=== PATIENT | female | born 1990 | race Caucasian/White ===

== ENCOUNTER 2020-02-18 18:31 | Inpatient (IN) | payer OTHER ==
[2020-02-18] MEDS ORDERED: ACETAMINOPHEN 325 MG TABLET PO PRN (18:54)
[2020-02-18] MEDS ORDERED: RINGERS SOLUTION,LACTATED 300 ML IV ONE (18:54)
[2020-02-18] MEDS ORDERED: DINOPROSTONE 10 MG VAGINAL INSERT.SR PV PRN (18:54)
[2020-02-18] MEDS ORDERED: RINGERS SOLUTION,LACTATED 1,000 ML IV PRN ×2 (18:54→18:58)
[2020-02-18] MEDS ORDERED: ZOLPIDEM TARTRATE 5 MG TABLET PO PRN (18:54)
[2020-02-18] MEDS ORDERED: MAG HYDROX/AL HYDROX/SIMETH SUSP 30 ML UDCUP PO PRN (18:54)
[2020-02-18] MEDS ORDERED: DINOPROSTONE 10 MG VAGINAL INSERT.SR ONE (19:21)
[2020-02-18 19:23] LABS: APPEARANCE,URINE CLEAR; BILIRUBIN,URINE NEGATIVE (NEGATIVE); COLOR,URINE YELLOW; GLUCOSE, URINE NEGATIVE (NEGATIVE); KETONES,URINE NEGATIVE (NEGATIVE); LEUKOCYTE ESTERASE,URINE NEGATIVE (NEGATIVE); NITRITE,URINE NEGATIVE (NEGATIVE); PROTEIN,URINE NEGATIVE (NEGATIVE); URINE SPECIFIC GRAVITY 1.006; UROBILINOGEN,URINE NEGATIVE mg/dL (<2.0)
[2020-02-18 19:35] LABS: HEMATOCRIT 29.4 % (36.0-47.0); HEMOGLOBIN 9.9 g/dL (12.0-15.5); MEAN CORPUSCULAR HEMOGLOBIN 27.3 pg (27.0-33.4); MEAN CORPUSCULAR HGB CONC 33.8 g/dL (32.0-36.0); MEAN CORPUSCULAR VOLUME 81 fl (80-97); PLATELET COUNT 161 10^3/uL (150-450); RED BLOOD COUNT 3.64 10^6/uL (3.72-5.28); RED CELL DISTRIBUTION WIDTH 13.7 % (11.5-14.0); WHITE BLOOD COUNT 9.8 10^3/uL (4.0-10.5)
--- NOTE | 2020-02-18 19:39 | Admission Physical ---
Datetime Report Generated by CPN: 02/18/2020 19:39 CURRENT ADMISSION Hx Assessment: The History has been Reviewed and is Current Chief Complaint: Scheduled Induction of Labor Indication for Induction: Post Dates Admit Impression : Postterm, Intrauterine Admit Plan: Admit to Unit; Initiate Labor Induction Protocol ALLERGIES Medication Allergies: No Medication Allergies: No Known Allergies (02/18/2020) Latex: No Latex Allergies OBSTETRICAL HISTORY EDC: 02/12/2020 00:00 : 1 Para: 0 Term: 0 : 0 SAB: 0 IAB: 0 Ectopic: 0 Livin Cesareans: 0 VBACs: 0 Multiple Births: 0 Gestational Diabetes: No Rh Sensitization: No Incompetent Cervix: No BRENNA: No Infertility: No ART Treatment: No Uterine Anomaly: No IUGR: No Hx Previous C/S: No Macrosomia: No Hx Loss/Stillborn: No PIH: No Hx : No Placenta Previa/Abruption: No Depression/PP Depression: No PTL/PROM: No Post Hemorrhage: No Current Procedures: Ultrasound Obstetrical History Comments: G1-Current SEE RECORDS Alcohol: No Marijuana : No Cocaine: No Other Illicit Drugs: No Cigarettes: Never Smoker. 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 Surgery: No Heart Disease: No Hosp/Surgery: No Autoimmune Disorder: No Anesthetic Complications: No Kidney Disease: Yes Abnormal Pap Smear: Yes Neuro/Epilepsy: No Psychiatric Disorders: No Other Medical Diseases: No Hepatitis/Liver Disease: No Significant Family History: No Varicosities/Phlebitis: No Trauma/Violence : No Thyroid Dysfunction: No Medical History Comments: 06/2008 and 10/2009 -ASCUS +HPV INFECTIOUS HISTORY Gonorrhea: No Genital Herpes: No Chlamydia: Yes Tuberculosis: No Syphilis: No Hepatitis: No HIV/AIDS Exposure: No Rash or Viral Illness: No HPV: Yes PHYSICAL EXAM General: Normal HEENT: Normal Neurologic: Normal Thyroid: Normal Heart: Normal Lungs: Normal Breast: Normal Back: Normal Abdomen: Normal Genitourinary Exam: Normal Extremities: Normal DTRs: Normal Pelvic Type: Adequate Vital Signs: Reviewed; Within Normal Limits VAGINAL EXAM Dilatation: 4 Effacement: 75 Station: -1 Contraction Comments: irregular MEMBRANES Membranes: Intact FETUS A EGA: 40.6 Monitoring: External US FHR- Baseline: 125 Variability: Moderate 6-25bpm Accelerations: 15X15 Decelerations: None FHR Category: Category I Presentation: Vertex Admit Comment: G1 at 40.6 wks EGA admitted for IOL for post dates . -Admit to LDR -CEFM and toco -NPO and IVFs . LR at 150 cc/hr after IVF bolus of 1 liter -GBS negative -Desires epidural with labor -Anticipate PLANS FOR LABOR AND DELIVERY Labor and Delivery: None Pain Management: Epidural Feeding Preference: Breast Benefit of Breast Feed Discussed: Yes Circumcision: Yes INFORMED CONSENT Informed Consent Obtained: Vaginal Delivery; Induction of Labor; Vacuum/Forceps Assist; Risks, Benefits and Alternatives Discussed Signature: with User ID: [email or web address] : with User ID: [email or web address]
[2020-02-18 19:40] LABS: URINE AMPHETAMINES SCREEN NEGATIVE; URINE BARBITURATES SCREEN NEGATIVE; URINE BENZODIAZEPINES SCREEN NEGATIVE; URINE COCAINE SCREEN NEGATIVE; URINE MARIJUANA (THC) SCREEN NEGATIVE; URINE METHADONE SCREEN NEGATIVE; URINE PHENCYCLIDINE SCREEN NEGATIVE
[2020-02-18] MEDS ORDERED: EPHEDRINE SULFATE INJ 50 MG/1 ML AMPULE ONE (21:44)
[2020-02-18] MEDS ORDERED: FENTANYL/BUPIVACAINE/NS/PF 300 MCG/150 ML RTUINJ EPI ONE (21:44)
[2020-02-18] MEDS ORDERED: ROPIVACAINE HCL 0.2% INJ/PF (2 MG/ML) 20 ML SDV ONE (21:44)
[2020-02-18] MEDS ORDERED: LIDOCAINE 1% INJ-PF (10 MG/ML) 30 ML SDV ONE (23:07)
[2020-02-18] MEDS ORDERED: OXYTOCIN/0.9 % SODIUM CHLORIDE 0 UNIT/0 ML RTUINJ ONE (23:07)
[2020-02-18] MEDS ORDERED: MISOPROSTOL 0.2 MG TABLET ONE (23:07)
[2020-02-18] MEDS ORDERED: OXYTOCIN 10 UNIT/ML VIAL ONE (23:07)
[2020-02-19] MEDS ORDERED: ONDANSETRON HCL INJ/PF 4 MG/2 ML SDV IV ONE (07:49)
[2020-02-19] MEDS ORDERED: ONDANSETRON HCL INJ/PF 4 MG/2 ML SDV ONE ×2 (07:50→14:44)
--- NOTE | 2020-02-19 08:10 | L&D Progress Notes ---
PROGRESS NOTES Datetime Report Generated by CPN: 02/19/2020 08:10 PROGRESS NOTE Procedures: Artificial ROM Procedures- Other: forebag Plan: Continue Present Management Informed Consent Obtained: Vaginal Delivery; Induction of Labor; Vacuum/Forceps Assist; Risks, Benefits and Alternatives Discussed Vital Signs : Reviewed; Within Normal Limits Comment: VE= 8/95/vtx/-2, ROM, forebag with FSE, large amount of clear fluid, Cat 1 strip, irreg uc's POC discussed with patient and hsb anticipate vaginal delivery of male VAGINAL EXAM Dilatation: 4 Effacement: 75 Station: -1 Contractions: irregular LAST VAGINAL EXAM-NURSING Nursing Exam Dilitation: 8.0 Nursing Exam Effacement: 95 Nursing Exam Station: -2 Nursing Exam Contractions: UTD ctx pattern. Pt sitting for epidural. RN at bedside palpating abodmen MEMBRANES Membranes: Ruptured Amniotic Fluid Color: Clear FETUS A Monitoring: External US Variability: Moderate 6-25bpm Accelerations: 15X15 FHR Category: Category I : 40.6 Presentation: Vertex SIGNATURE SIGNATURE: [id number] Assignment: Salvatore Kelly MD Signature: with User ID: [email or web address] : with User ID: [email or web address]
--- NOTE | 2020-02-19 12:07 | L&D Progress Notes ---
PROGRESS NOTES Datetime Report Generated by CPN: 02/19/2020 12:07 PROGRESS NOTE Procedures: Artificial ROM Procedures- Other: forebag Plan: Continue Present Management Informed Consent Obtained: Vaginal Delivery; Induction of Labor; Vacuum/Forceps Assist; Risks, Benefits and Alternatives Discussed Vital Signs : Reviewed; Within Normal Limits Comment: pushing, variables and early decelerations, moderate variability VAGINAL EXAM Dilatation: 4 Effacement: 75 Station: -1 Contractions: irregular LAST VAGINAL EXAM-NURSING Nursing Exam Dilitation: 10.0 Nursing Exam Effacement: 100 Nursing Exam Station: 2 Nursing Exam Contractions: UTD ctx pattern. Pt sitting for epidural. RN at bedside palpating abodmen MEMBRANES Membranes: Ruptured Amniotic Fluid Color: Clear FETUS A Monitoring: External US Variability: Moderate 6-25bpm Accelerations: 15X15 FHR Category: Category I : 40.6 Presentation: Vertex SIGNATURE SIGNATURE: [id number];[id number] Assignment: Salvatore Kelly MD Signature: with User ID: [email or web address] : with User ID: [email or web address]
[2020-02-19] MEDS ORDERED: FENTANYL/BUPIVACAINE/NS/PF 300 MCG/150 ML RTUINJ EPI ONE (12:21)
--- NOTE | 2020-02-19 13:35 | L&D Progress Notes ---
PROGRESS NOTES Datetime Report Generated by CPN: 02/19/2020 13:34 PROGRESS NOTE Procedures: Artificial ROM Procedures- Other: forebag Plan: Continue Present Management Informed Consent Obtained: Vaginal Delivery; Induction of Labor; Vacuum/Forceps Assist; Risks, Benefits and Alternatives Discussed Vital Signs : Reviewed; Within Normal Limits Comment: text Dr. Kelly to come and possibly us VExt, poor pushing effort x 2.5 hours, early decelerations and occas late, moderate variability VAGINAL EXAM Dilatation: 4 Effacement: 75 Station: -1 Contractions: irregular LAST VAGINAL EXAM-NURSING Nursing Exam Dilitation: 10.0 Nursing Exam Effacement: 100 Nursing Exam Station: 2 Nursing Exam Contractions: UTD ctx pattern. Pt sitting for epidural. RN at bedside palpating abodmen MEMBRANES Membranes: Ruptured Amniotic Fluid Color: Clear FETUS A Monitoring: External US Variability: Moderate 6-25bpm Accelerations: 15X15 FHR Category: Category I : 40.6 Presentation: Vertex SIGNATURE SIGNATURE: [id number];[id number] Assignment: Salvatore Kelly MD Signature: with User ID: [email or web address] : with User ID: [email or web address]
[2020-02-19] MEDS ORDERED: CEFAZOLIN 2 GM/D5W RTU 2 GM/50 ML RTUPB IV ONE (14:20)
[2020-02-19] MEDS ORDERED: CITRIC ACID/SODIUM CITRATE ORAL SOLN 15 ML UDCUP ONE (14:20)
--- NOTE | 2020-02-19 14:22 | L&D Progress Notes ---
PROGRESS NOTES Datetime Report Generated by CPN: 02/19/2020 14:21 PROGRESS NOTE Impression: Arrest of Dilatation/Descent Procedures: Artificial ROM Procedures- Other: forebag Plan: Deliver- Section Informed Consent Obtained: Section Delivery Vital Signs : Reviewed; Within Normal Limits Comment: She has been pushing for 3 hours now. The pt requested a vac delivery. This was attempted with a kiwi with pull during the contractions. I am unable to advance the station with strong pulls during three contractions. At this point the pt requests a . We will go ahead and proceed. VAGINAL EXAM Dilatation: 4 Effacement: 75 Station: -1 Contractions: irregular LAST VAGINAL EXAM-NURSING Nursing Exam Dilitation: 10.0 Nursing Exam Effacement: 100 Nursing Exam Station: 2 Nursing Exam Contractions: UTD ctx pattern. Pt sitting for epidural. RN at bedside palpating abodmen MEMBRANES Membranes: Ruptured Amniotic Fluid Color: Clear FETUS A Monitoring: External US Variability: Moderate 6-25bpm Accelerations: 15X15 FHR Category: Category I : 41.0 Presentation: Vertex SIGNATURE SIGNATURE: [id number];[id number] Assignment: Salvatore Kelly MD Signature: with User ID: [email or web address] : with User ID: [email or web address]
[2020-02-19] MEDS ORDERED: CEFAZOLIN SODIUM 2 GM in DEXTROSE 5%-WATER 50 ML IV PRN (14:25)
[2020-02-19] MEDS ORDERED: DIPH/PERTUSS(ACELL)/TETANUS VAC/PF 0.5 ML SYR (>=10YO) IM PRN (14:27)
[2020-02-19] MEDS ORDERED: HYDROMORPHONE HCL INJ/PF 2 MG/ML AMPULE IV PRN (14:27)
[2020-02-19] MEDS ORDERED: RINGERS SOLUTION,LACTATED 1,000 ML IV PRN (14:27)
[2020-02-19] MEDS ORDERED: MEASLES,MUMPS&RUBELLA VACC/PF 0.5 ML VIAL SUBCUT PRN (14:27)
[2020-02-19] MEDS ORDERED: ACETAMINOPHEN 325 MG TABLET PO PRN (14:27)
[2020-02-19] MEDS ORDERED: OXYTOCIN/0.9 % SODIUM CHLORIDE 30 UNIT/500 ML RTUINJ IV PRN (14:27)
[2020-02-19] MEDS ORDERED: SIMETHICONE 80 MG TAB.CHEW PO PRN (14:27)
[2020-02-19] MEDS ORDERED: PROMETHAZINE HCL INJ 25 MG/1 ML VIAL IV PRN (14:27)
[2020-02-19] MEDS ORDERED: OXYCODONE-ACETAMINOPHEN 5-325 MG TABLET PO PRN ×2 (14:27)
[2020-02-19] MEDS ORDERED: ACETAMINOPHEN 1,000 MG/100 ML RTUPB IV PRN (14:27)
[2020-02-19] MEDS ORDERED: FENTANYL CITRATE INJ/PF 100 MCG/2 ML AMPUL ONE ×2 (14:36→15:12)
[2020-02-19] MEDS ORDERED: LIDOCAINE 2% INJ-PF (20 MG/ML) 10 ML AMPUL ONE ×2 (14:36→15:35)
[2020-02-19] MEDS ORDERED: PHENYLEPHRINE HCL INJ/PF 10 MG/1 ML SDV ONE (14:44)
[2020-02-19] MEDS ORDERED: OXYTOCIN 10 UNIT/ML VIAL ONE ×2 (14:50→15:06)
--- NOTE | 2020-02-19 15:37 | Operative Report ---
Operative Report DATE OF SURGERY: 02/19/20 PREOPERATIVE DIAGNOSIS: Arrest of descent, unsuccessful vacuum delivery attempt POSTOPERATIVE DIAGNOSIS: Same OPERATION: Primary via low transverse uterine incision SURGEON: DANIEL CHU ANESTHESIA: Epidural TISSUE REMOVED OR ALTERED: Placenta COMPLICATIONS: None ESTIMATED BLOOD LOSS: 400 cc INTRAOPERATIVE FINDINGS: Viable male crying at delivery, normal uterus tubes and ovaries PROCEDURE: Patient was taken to the OR and placed in supine position after her spinal anesthesia. She is prepared and draped in sterile fashion. Duarte was placed for drainage of the bladder. Low transverse incision was made and carried down the level of the fascia. The fascial incision was made with knife and extended bilaterally with curved Carrasco scissors. The fascia was off the rectus muscles using sharp and blunt dissection. The rectus muscles are in the midline. The peritoneum was entered without incident. Bladder blade was placed in uterine segment was identified. A low transverse incision was made creating a bladder flap. Bladder blade was placed low transverse uterine incision was made with the knife and extended with fingertips. The baby was delivered left occiput transverse with assistance of the vaginal hand and with some fundal pressure. Mouth and nose were suctioned free. The cord is doubly clamped and cut. Baby is passed off to the textile machinery sales representative in attendance. The placenta was manually extracted with trailing membranes. The uterus was externalized wrapped in a moist lap sponge. Uterine contents wiped free. Uterus was closed with a running locking layer of 0 chromic suture using the second layer to imbricate the first completing a double layer closure of the uterus. The serosa was closed with a running 2-0 chromic stitch. The pelvis was irrigated and suctioned free of fluid the uterus was replaced in the abdomen. The abdominal wall peritoneum was closed with running 2-0 chromic stitch. Fascia was closed with a running 0 Vicryl in 2 segments. Ramon's layer was brought together with 0 plain gut stitch and the skin was closed with running subcuticular 4-0 undyed Vicryl stitch. The wound was dressed mother and baby did well.
--- NOTE | 2020-02-19 16:16 | Birth Certificate Data ---
Cert Data Datetime Report Generated by CPN: 02/19/2020 16:16 CERTIFICATE DATA 47a. Care: Yes (02/18/2020 17:47:Su Márquez RN) 47b. Date of First Visit: 08/02/2019 00:00 (02/18/2020 17:47:Su Márquez RN) 47c. Date of Last Visit: 02/15/2020 00:00 (02/18/2020 17:47:Su Márquez RN) 47d. Number of Visits: 12 (02/18/2020 17:47:Su Márquez RN) 48a. Number of Prev Live Births: 0 (02/18/2020 17:47:Su Márquez RN) 48b. Now Livin (02/18/2020 17:47:Su Márquez RN) 48c. Live Births Now : 0 (02/18/2020 17:47:QS system process) 48e. Losses: 0 (02/18/2020 17:47:Su Márquez RN) RISK FACTORS IN THIS 49a. Diabetes: No (02/18/2020 17:47:Su Márquez RN) 49b. Hypertension: No (02/18/2020 17:47:Su Márquez RN) 49c. Previous Births: 0 (02/18/2020 17:47:Su Márquez RN) 49d. Stillborns: No (02/18/2020 17:47:Su Márquez RN) 49d. IUGR: No (02/18/2020 17:47:Su Márquez RN) 49e. Infertility Treatment: No (02/18/2020 17:47:Su Márquez RN) 49f. Previous Cesareans: 0 (02/18/2020 17:47:Su Márquez RN) Mother's Height 50b. Height Inches: 67 (02/19/2020 13:59:QS system process) Mother's Weight 51a. Pre- Weight (lbs): 152 (02/18/2020 17:47:Su Márquez RN) 51b. Weight at Delivery (lbs): 189 (02/19/2020 13:59:QS system process) 52. Dt Last Normal Menses Began: 05/08/2019 00:00 (02/18/2020 17:47:Su Márquez RN) Infections Present/Treated 53a. Gonorrhea: No (02/18/2020 17:47:Su Márquez RN) Results this Hospital Visit : Negative (02/18/2020 17:47:Su Márquez RN) 53b. Syphilis: No (02/18/2020 17:47:Su Márquez RN) Results this Hospital Visit: NONREACTIVE (02/18/2020 19:17:QS system process) 53c. Chlamydia: Yes (02/18/2020 17:47:Su Márquez RN) Results this Hospital Visit: Negative (02/18/2020 17:47:Su Márquez RN) 53d. Hepatitis B: No (02/18/2020 17:47:Su Márquez RN) Results this Hospital Visit: Negative (02/18/2020 17:47:Su Márquez RN) 53e. Hepatitis C: Negative (02/18/2020 17:47:Su Márquez RN) 53h. Mother Tested for HBsAG: Yes (02/18/2020 17:47:Su Márquez RN) 53i. Date Tested: 08/02/2019 00:00 (02/18/2020 17:47:Su Márquez RN) 53j. Test Result: Negative (02/18/2020 17:47:Su Márquez RN) Obstetric Procedures 54a, b, c. Obstetric Procedures: Ultrasound (02/18/2020 17:47:Su Márquez RN) Cigarette Smoking Cigarette Smoking: Never Smoker. [id number] (02/18/2020 17:47:Su Márquez RN) 55a. 3 Months Before Preg - Ci (02/18/2020 17:47:Su Márquez RN) 55b. 1st Trimester of Preg- Ci (02/18/2020 17:47:Su Márquez RN) 55c. 2nd Trimester of Preg- Ci (02/18/2020 17:47:Su Márquez RN) 55d. 3rd Trimester of Preg- Ci (02/18/2020 17:47:Su Márquez RN) Onset of Labor 56a. PROM >12 Hrs: 15.87 (02/18/2020 17:47:QS system process) 56b. Precipitous Labor <3 Hrs: 15 (02/18/2020 17:47:QS system process) 56c. Prolonged Labor > 20 Hrs: 15 (02/18/2020 17:47:QS system process) 57a. Induction of Labor: N/A (02/18/2020 17:47:CLAUDIA Bell) 57c. Non-Vertex Presentation A: Vertex (02/18/2020 17:47:CLAUDIA Bell) 57d. Steroids - Lung Mat: None (02/18/2020 17:47:Su Márquez RN) 57d. Steroids - Lung Mat: Not Applicable (02/18/2020 17:47:Su Márquez RN) 57f. Mat [place] or Temp >100.4: 99.4 (02/18/2020 17:47:Su Márquez RN) 57g. Moderate/Heavy Meconium: Clear (02/18/2020 23:08:Sophie Keyes RN) 57h. Intolerance of Labor: Arrest of Descent (02/18/2020 17:47:CLAUDIA Bell) : N/A (02/18/2020 17:47:CLAUDIA Bell) 57i. Epidural/Spinal Anesthesia: Epidural (02/18/2020 17:47:Su Márquez RN) Method of Delivery 58a. Forceps - Unsuccessful A: N/A (02/18/2020 17:47:CLAUDIA Bell) 58b. Vacuum - Unsuccessful A: Failed (02/18/2020 17:47:CLAUDIA Bell) 58c. Presentation at 58c. Presentation at - A : Vertex (02/18/2020 17:47:CLAUDIA Bell) 58c. Presentation at - A : N/A (02/18/2020 17:47:CLAUDIA Bell) 58c. Presentation at - A : Cephalic (02/18/2020 19:29:Sophie Keyes, RN) Final Route and Method of Del 58d. Baby A Route/Delivery: (02/18/2020 17:47:Nimo Ruano [facility]) 58e. Trial of Labor Attempted: No (02/18/2020 17:47:Su Márquez RN) 58e. Trial of Labor Attempted A: N/A (02/18/2020 17:47:Su Márquez RN) 58e. Trial of Labor Attempted B: N/A (02/18/2020 17:47:Su Márquez RN) Maternal Morbidity 59b. 3rd or 4th Degree Lacs: None (02/18/2020 17:47:Nimo Camp, [facility]) Birthweight Baby A: 3685 (02/18/2020 17:47:Nimo [place], RNC) 60a. Pounds : 8 (02/18/2020 17:47:QS system process) 60b. Ounces: 2 (02/18/2020 17:47:QS system process) 61. GA at Delivery Baby A: 41.0 (02/18/2020 17:47:[facility], ) : Late Term- 41- 41.6 Weeks (02/18/2020 17:47:QS system process) 62a. 5 Minute Baby A: 9 (02/18/2020 17:47:QS system process)
--- NOTE | 2020-02-19 16:16 | Delivery Summary ---
Del Sum A-C Datetime Report Generated by CPN: 02/19/2020 16:16 DELIVERY PERSONNEL DELIVERY PERSONNEL: [id number] Delivery Doctor:: Salvatore Kelly MD Nurse Automotive Refinish Technician Certified:: Elidia Whittington CNM FBI PROFILER:: Rocio Jimenez CRNA Labor and Delivery Nurse:: Su Márquez RN Loan And Credit Manager:: Su Márquez RN Neonatal Nurse Practitioner:: MIKA Ordoñez Nursery Nurse:: Sofia Robledo RN Annealer Helper/BANANA ROOM CUTTER: ST Afia Annealer Helper/BANANA ROOM CUTTER: Eleonora Gonzalez, SPEEDOMETER MECHANIC MATERNAL INFORMATION Delivery Anesthesia: Epidural Medications After Delivery: Pitocin Drip 20 Units/1000ml NSS Meds After Delivery Comment: Pitocin 20 units/ 1000 LR x 2 Delivery QBL: 610 Maternal Complications: None LABOR SUMMARY EDC: 02/12/2020 00:00 No. Babies in Womb: 1 Attempted: No Labor Anesthesia: Epidural LABOR INFORMATION Reason for Induction: Not Applicable Onset of Labor: 02/18/2020 23:08 Complete Dilatation: 02/19/2020 11:06 Oxytocin: N/A Group B Beta Strep: Negative Antibiotics # of Doses: n/a Name of Antibiotic Given: n/a Steroids Given: None Reason Steroids Not Administered: Not Applicable MEMBRANES Membranes Rupture Method: Spontaneous Rupture of Membranes: 02/18/2020 23:08 Length of Rupture (hr): 15.87 Amniotic Fluid Color: Clear Amniotic Fluid Amount: Small Amniotic Fluid Odor: Normal STAGES OF LABOR Stage 1 hr: 11 Stage 1 min: 58 Stage 2 hr: 3 Stage 2 min: 54 Stage 3 hr: 0 Stage 3 min: 1 Total Time in Labor hr: 15 Total Time in Labor min: 53 VAGINAL DELIVERY Episiotomy: None Laceration #1: None Laceration Extension #1: N/A Sponge Count Correct: N/A Sharps Count Correct: N/A CSECTION DELIVERY Primary Indication: Arrest of Descent Secondary Indication: N/A CSection Urgency: Non-Scheduled CSection Incidence: Primary Labor: Labor Elective: Nonelective CSection Incision: Lower Uterine Transverse BABY A INFORMATION Infant Delivery Date/Time: 02/19/2020 15:00 Method of Delivery: Nurse Controlled Delivery: No Born in Route : No : N/A Forceps: N/A Vacuum Extraction: Failed Shoulder Dystocia : No PRESENTATION/POSITION BABY A Presentation: Cephalic Cephalic Presentation: Vertex Vertex Position: n/a Breech Presentation: N/A PLACENTA INFORMATION BABY A Placenta Delivery Time : 02/19/2020 15:01 Placenta Method of Delivery: Manual Removal Placenta Status: Delivered SCORES BABY A Heart Rate 1 min: >100 bpm Resp Effort 1 min: Slow, Irregular Reflex Irritability 1 min: Cough or Sneeze or Pulls Away Muscle Tone 1 min: Active Motion Color 1 min: Body [place], Extremities Blue SCORE 1 MIN: 8 Heart Rate 5 min: >100 bpm Resp Effort 5 min: Good Cry Reflex Irritability 5 min: Cough or Sneeze or Pulls Away Muscle Tone 5 min: Active Motion Color 5 min: Body [place], Extremities Blue Resuscitation Effort 5 min: N/A SCORE 5 MIN: 9 Resuscitation Effort 10 min: N/A INFORMATION BABY A Gestational Age at Delivery: 41.0 Gestational Status: Late Term- 41- 41.6 Weeks Infant Outcome : Liveborn Infant Condition : Stable Infant Sex: Male IDENTIFICATION BABY A Verification Date/Time: 02/19/2020 15:01 ID Band Number: [id number] Mother's Name Verified: Yes RN Verifying Infant: Paty, RN Additional Verifying Personnel: Yoselin Infante, RN WEIGHT/LENGTH BABY A Birthweight (gm): 3685 Infant Weight (lb): 8 Weight (oz): 2 Length (in): 21.75 Infant Length (cm): 55.25 CORD INFORMATION BABY A No. Cord Vessels: 3 Nuchal Cord : N/A Cord Blood Taken: N/A Infant Suction: None ASSESSMENT BABY A Complications: None Physical Findings at Delivery: Caput Succedaneum; Molding of the Head; Bruising Infant Respirations: Appears Normal Skin to Skin: No Senior Hr Manager/ALS Called : No Infant Care By: Miko Robledo RN Transferred To: [facility] BABY B INFORMATION : N/A ASSESSMENT BABY B Skin to Skin: Yes
[2020-02-19] MEDS ORDERED: ACETAMINOPHEN 1,000 MG/100 ML RTUPB IV ONE ×2 (16:33→16:39)
[2020-02-19] MEDS: DOCUSATE SODIUM 100 MG CAPSULE PO SCH (19:57)
[2020-02-19] MEDS: KETOROLAC TROMETHAMINE INJ/PF 30 MG/1 ML SDV IV SCH (21:08)
[2020-02-20] MEDS: KETOROLAC TROMETHAMINE INJ/PF 30 MG/1 ML SDV IV SCH (05:09)
[2020-02-20 06:53] LABS: HEMATOCRIT 22.1 % (36.0-47.0); MEAN CORPUSCULAR HEMOGLOBIN 27.5 pg (27.0-33.4); MEAN CORPUSCULAR VOLUME 81 fl (80-97); PLATELET COUNT 137 10^3/uL (150-450); RED BLOOD COUNT 2.73 10^6/uL (3.72-5.28); RED CELL DISTRIBUTION WIDTH 14.4 % (11.5-14.0); WHITE BLOOD COUNT 13.8 10^3/uL (4.0-10.5)
[2020-02-20 06:56] LABS: HEMOGLOBIN 7.5 g/dL (12.0-15.5)
[2020-02-20] MEDS ORDERED: INFLUENZA QUAD (6MOS+) 2020-21 VAC 0.5 ML SYR IM ONE (08:00)
[2020-02-20] MEDS: PRENATAL VITAMIN W DHA CAPSULE PO SCH (09:52)
[2020-02-20] MEDS: DOCUSATE SODIUM 100 MG CAPSULE PO SCH ×2 (09:53→17:30)
[2020-02-20] MEDS: IBUPROFEN 800 MG TABLET PO SCH ×3 (12:05→23:01)
--- NOTE | 2020-02-20 12:09 | PDOC PROGRESS REPORT ---
Subjective-OB Progress Note for:: 02/20/20 Subjective: 30yo s/p primary ppd 1. Pt is ambulating, voiding and passing gas without difficulty. Bonding well with baby, reports pain is well controlled with pain medication at this time. Denies sob/dizziness/lightheartednesses or other concerns. Physical Exam (OB) Vital Signs: Temp Pulse Resp BP Pulse Ox 98.0 F 79 16 108/62 99 02/20/20 11:07 02/20/20 11:07 02/20/20 11:07 02/20/20 11:07 02/20/20 11:07 Intake & Output 02/19/20 02/20/20 02/21/20 06:59 06:59 06:59 Intake Total 2150 320 Output Total 1500 Balance 650 320 Weight 86.1 kg - General General Appearance: Appears well In distress: None - PIH/Pre-Eclampsia Headache: Absent Epigastric Pain: No Visual Changes: No - Dressing Removed: No - opsite dressing D&I Incision: Well Approximated - Maternal Morbidity 59. Maternal Morbidity (serious complications experinced by the mother associated with labor and delivery: None of the above - Lochia Lochia Amount: Scant < 10 ml Lochia Color: Rubra/Red - Abdomen Description: Tender, Soft Hernia Present: No Fundal Description: Firm, Midline Fundal Height: u/u - u/2 - Respiratory Respiratory Status: No respiratory distress - Extremities Upper extremity: Normal inspection - Neurological Cognition: Normal Orientation: AAOx4 - Psychological Associated symptoms: Normal affect, Normal mood Objective-Diagnostic Laboratory: 02/20/20 06:24 02/20/20 02/20/20 06:24 06:24 WBC 13.8 H RBC 2.73 L Hgb 7.5 L D Hct 22.1 L MCV 81 MCH 27.5 MCHC 34.0 RDW 14.4 H Plt Count 137 L Blood Type A NEGATIVE Assessment and Plan(PN) - Assessment and Plan (1) Encounter for induction of labor Is this a current diagnosis for this admission?: Yes Plan: delivered (2) Failed induction of labor Qualifiers: Failed induction of labor type: unspecified Qualified Code(s): O61.9 - Failed induction of labor, unspecified Is this a current diagnosis for this admission?: Yes Plan: delivered (3) S/P primary low transverse Is this a current diagnosis for this admission?: Yes Plan: routine pp care (4) Acute blood loss anemia Is this a current diagnosis for this admission?: Yes Plan: will order IV iron at this time, pt agreeable (5) Failed vacuum extraction, delivered, current hospitalization Is this a current diagnosis for this admission?: Yes Plan: delivered - Time Spent with Patient Time with patient: Less than 15 minutes Medications reviewed and adjusted accordingly: Yes - Disposition Anticipated Discharge Disposition: Home, Self Care Anticipated Discharge Timeframe: within 24 hours
[2020-02-20] MEDS ORDERED: IRON SUCROSE COMPLEX INJ/PF 100 MG/5 ML SDV IV ONE (13:30)
[2020-02-20] MEDS ORDERED: IBUPROFEN 800 MG TABLET PO SCH (18:00)
[2020-02-21] MEDS: IBUPROFEN 800 MG TABLET PO SCH ×2 (05:59→12:07)
[2020-02-21 07:06] LABS: HEMATOCRIT 24.5 % (36.0-47.0); HEMOGLOBIN 8.2 g/dL (12.0-15.5); MEAN CORPUSCULAR HEMOGLOBIN 27.7 pg (27.0-33.4); MEAN CORPUSCULAR HGB CONC 33.6 g/dL (32.0-36.0); MEAN CORPUSCULAR VOLUME 82 fl (80-97); PLATELET COUNT 174 10^3/uL (150-450); RED BLOOD COUNT 2.98 10^6/uL (3.72-5.28); RED CELL DISTRIBUTION WIDTH 14.6 % (11.5-14.0); WHITE BLOOD COUNT 13.9 10^3/uL (4.0-10.5)
[2020-02-21] MEDS: PRENATAL VITAMIN W DHA CAPSULE PO SCH (09:39)
[2020-02-21] MEDS: DOCUSATE SODIUM 100 MG CAPSULE PO SCH (09:39)
--- NOTE | 2020-02-21 12:37 | PDOC DISCHARGE SUMMARY ---
Impression - Admit/DC Date/PCP Admission Date/Primary Care Provider: 02/18/20 18:31 MYRA DUPONT MD Discharge Date: 02/21/20 - Discharge Diagnosis (1) Acute blood loss anemia Is this a current diagnosis for this admission?: Yes (2) Encounter for induction of labor Is this a current diagnosis for this admission?: Yes (3) Failed induction of labor Is this a current diagnosis for this admission?: Yes (4) Failed vacuum extraction, delivered, current hospitalization Is this a current diagnosis for this admission?: Yes (5) S/P primary low transverse Is this a current diagnosis for this admission?: Yes - Additional Information Discharge Diet: Regular Discharge Activity: Balance Activity w/Rest, No Lifting Over 10 Pounds, No Lifting/Push/Pulling, Pelvic Rest, No tub bath Referrals: MYRA DUPONT MD [Primary Care Provider] - Prescriptions: Ferrous Sulfate [Semaj-Time] 325 mg PO DAILY 30 Days #30 tablet Ibuprofen [Motrin 800 mg Tablet] 800 mg PO Q6HP PRN #90 tablet PRN Reason: Hydrocodone/Acetaminophen [Vicodin Hp 10-300 mg Tablet] 1 each PO Q6HP PRN #14 tablet PRN Reason: Home Medications: 95/Iron Fum/Folic/Dha [ + Dha Combo Pack] 1 each PO DAILY 02/18/20 Ferrous Sulfate [Semaj-Time] 325 mg PO DAILY 30 Days #30 tablet 02/21/20 Hydrocodone/Acetaminophen [Vicodin Hp 10-300 mg Tablet] 1 each PO Q6HP PRN #14 tablet 02/21/20 Ibuprofen [Motrin 800 mg Tablet] 800 mg PO Q6HP PRN #90 tablet 02/21/20 Hospital Course 59. Maternal Morbidity (serious complications experinced by the mother associated with labor and delivery: None of the above Results Laboratory Results: WBC 13.9 10^3/uL (4.0-10.5) H 02/21/20 06:31 RBC 2.98 10^6/uL (3.72-5.28) L 02/21/20 06:31 Hgb 8.2 g/dL (12.0-15.5) L 02/21/20 06:31 Hct 24.5 % (36.0-47.0) L 02/21/20 06:31 MCV 82 fl (80-97) 02/21/20 06:31 MCH 27.7 pg (27.0-33.4) 02/21/20 06:31 MCHC 33.6 g/dL (32.0-36.0) 02/21/20 06:31 RDW 14.6 % (11.5-14.0) H 02/21/20 06:31 Plt Count 174 10^3/uL (150-450) 02/21/20 06:31 Urine Color YELLOW 02/18/20 18:39 Urine Appearance CLEAR 02/18/20 18:39 Urine pH 6.0 (5.0-9.0) 02/18/20 18:39 Ur Specific [place] 1.006 02/18/20 18:39 Urine Protein NEGATIVE mg/dL (NEGATIVE) 02/18/20 18:39 Urine Glucose (UA) NEGATIVE mg/dL (NEGATIVE) 02/18/20 18:39 Urine Ketones NEGATIVE mg/dL (NEGATIVE) 02/18/20 18:39 Urine Blood NEGATIVE (NEGATIVE) 02/18/20 18:39 Urine Nitrite NEGATIVE (NEGATIVE) 02/18/20 18:39 Urine Bilirubin NEGATIVE (NEGATIVE) 02/18/20 18:39 Urine Urobilinogen NEGATIVE mg/dL (<2.0) 02/18/20 18:39 Ur Leukocyte Esterase NEGATIVE (NEGATIVE) 02/18/20 18:39 Urine Ascorbic Acid NEGATIVE (NEGATIVE) 02/18/20 18:39 Urine Opiates Screen NEGATIVE 02/18/20 18:39 Urine Methadone Screen NEGATIVE 02/18/20 18:39 Ur Barbiturates Screen NEGATIVE 02/18/20 18:39 Ur Phencyclidine Scrn NEGATIVE 02/18/20 18:39 Ur Amphetamines Screen NEGATIVE 02/18/20 18:39 U Benzodiazepines Scrn NEGATIVE 02/18/20 18:39 Urine Cocaine Screen NEGATIVE 02/18/20 18:39 U Marijuana (THC) Screen NEGATIVE 02/18/20 18:39 RPR NONREACTIVE (NONREACTIVE) 02/18/20 19:17 Blood Type A NEGATIVE 02/20/20 06:24 Antibody Screen NEGATIVE 02/18/20 19:17 Screen NEGATIVE 02/20/20 06:24 Plan Plan of Treatment: follow up in 1 week for incision check at [facility]
[2020-02-21 12:50] VITALS: BP 112/64
== END 2020-02-21 13:23 | disposition home or self-care (01) | DRG 787 ==
LOC: LR 18:31 → 2S 02-19 18:18
PROVIDERS: ADMIT Obstetrics & Gynecology; ATTEND Obstetrics & Gynecology
PROC: 10D00Z1 Extraction of Products of Conception, Low, Open Approach (ICD-10-PCS; principal; 2020-02-19)
PROC: 3E0234Z Introduction of Serum, Toxoid and Vaccine into Muscle, Percutaneous Approach (ICD-10-PCS; 2020-02-20)
PROC: 3E02340 Introduction of Influenza Vaccine into Muscle, Percutaneous Approach (ICD-10-PCS; 2020-02-21)
DX: O48.0 Post-term pregnancy (principal); D62 Acute posthemorrhagic anemia; O66.5 Attempted application of vacuum extractor and forceps; Z37.0 Single live birth; O76 Abnormality in fetal heart rate and rhythm complicating labor and delivery; O75.81 Maternal exhaustion complicating labor and delivery; O62.1 Secondary uterine inertia; Z3A.41 41 weeks gestation of pregnancy; O99.02 Anemia complicating childbirth; Z23 Encounter for immunization; O26.893 Other specified pregnancy related conditions, third trimester; Z67.11 Type A blood, Rh negative
CPT/HCPCS: 1967; 1968; 36415; 80307; 81005; 85027; 85461; 86592; 86850; 86900; 86901; 90471; 90686; 94760; 94799; G0008; J0131; J0690; J1756; J1885; J2370; J2405; J2590; J2790; J2795; J3010; J3490